=== PATIENT | male | born 1955 | race Caucasian/White ===

== ENCOUNTER 2017-05-03 16:11 | Emergency (ER) | payer MEDICARE, OTHER ==
[~2017-05-03] VITALS: Ht 188 cm; Wt 123.0 kg
[~2017-05-03 16:11] MED LIST: ASPI-621 PO; FLUT1DIS5 IH; GLIP10TA13 PO; INSU300I SQ; LISI-170 PO; SIMV20TA3 PO; SITA1TAB5 PO; ZOLP10TA PO
[2017-05-03 17:01] LABS: BLOOD UREA NITROGEN 20 mg/dL (7-18)
[2017-05-03 18:00] VITALS: BP 131/54
[2017-05-03 18:15] LABS: HEMATOCRIT 43.3 % (39.2-51.8); HEMOGLOBIN 14.9 g/dL (13.7-18.0); WHITE BLOOD COUNT 9.2 x10^3/uL (3.4-10)
== END 2017-05-03 18:57 | disposition home or self-care (01) ==
LOC: ED 16:41
DX: R55 Syncope and collapse (principal); R32 Unspecified urinary incontinence; E11.9 Type 2 diabetes mellitus without complications; J44.9 Chronic obstructive pulmonary disease, unspecified; Z86.73 Personal history of transient ischemic attack (TIA), and cerebral infarction without residual deficits; Z99.81 Dependence on supplemental oxygen
CPT/HCPCS: 36415; 70450; 71010; 80048; 81003; 82040; 85025; 93005; 99285

== ENCOUNTER → 2017-08-25 | Outpatient (CLI) | payer OTHER, MEDICARE ==
[~2017-08-25] MED LIST changes: +GADOBUTROL 10 MMOL/10 ML PFS ONE
== END ==
LOC: CFH 11:54
PROVIDERS: ATTEND Genetic Counselor, MS
DX: R55 Syncope and collapse (principal); Z86.73 Personal history of transient ischemic attack (TIA), and cerebral infarction without residual deficits
CPT/HCPCS: 70553; 82565; A9585

== ENCOUNTER → 2018-04-26 | Outpatient (CLI) | payer MEDICARE ==
[~2018-04-26] MED LIST changes: -GADOBUTROL 10 MMOL/10 ML PFS ONE
== END | disposition home or self-care (01) ==
LOC: CFH 07:55
PROVIDERS: ATTEND Internal Medicine Critical Care Medicine
DX: R06.02 Shortness of breath (principal)
CPT/HCPCS: 71250

== ENCOUNTER 2020-01-27 02:27 | Observation (INO) | payer MEDICARE ==
[~2020-01-27] VITALS: Ht 188 cm; Wt 123.0 kg
[~2020-01-27 02:27] MED LIST changes: -ASPI-621 PO; +ASPI81TA45 PO; +SIMV20TA19 PO; -SIMV20TA3 PO
[2020-01-27] MEDS ORDERED: SODIUM CHLORIDE 0.9% 1,000ML IVBOLUS ONE ×2 (03:00→04:30)
--- NOTE | 2020-01-27 03:07 | NUR ---
bib remsa, pt with n/v/d and syncopal episodes. pt usually wears 5 L O2 NC at all times. pt was in the bathroom, not wearing O2 when he passed out. pt arrives with 15L nonrebreather at 92%. pt with increased work of breathing and syncopal episode when sitting on cammode in ED treatment room. pt assisted by 4 RNs back to bed without falling. pt on guney, instructed not to get out of bed. at bedside. call light within reach. bed rails up x2. pt refusing zofran, continuing to vomit. attached to all monitors.
[2020-01-27] MEDS ORDERED: ONDANSETRON 2MG/ML, 2ML IVPush ONE (03:30)
[2020-01-27 03:38] LABS: BASOPHILS # (AUTO) 0.02 x10^3/uL (0-0.1); BASOPHILS % (AUTO) 0 % (0-1); EOSINOPHILS # (AUTO) 0.14 x10^3/uL (0-0.4); EOSINOPHILS % (AUTO) 1 % (1-7); LYMPHOCYTES # (AUTO) 2.24 x10^3/uL (1-3.4); LYMPHOCYTES % (AUTO) 16 % (22-44); MD NO; MEAN CORPUSCULAR HEMOGLOBIN 30.7 pg (27.5-34.5); MEAN CORPUSCULAR HGB CONC 33.1 g/dL (33.2-36.2); MEAN CORPUSCULAR VOLUME 92.7 fL (81-97); MEAN PLATELET VOLUME 8.9 fL (7.4-10.4); MONOCYTES # (AUTO) 0.28 x10^3/uL (0.2-0.8); MONOCYTES % (AUTO) 2 % (2-9); NEUTROPHILS # (AUTO) 11.23 x10^3/uL (1.8-6.8); NEUTROPHILS % (AUTO) 81 % (42-75); PLATELET COUNT 270 x10^3/uL (130-400); RED BLOOD COUNT 5.48 x10^6/uL (4.38-5.82); RED CELL DISTRIBUTION WIDTH 14.3 % (9.4-14.8)
[2020-01-27 03:50] LABS: ALANINE AMINOTRANSFERASE 26 U/L (12-78); ALBUMIN 3.1 g/dL (3.4-5.0); ANION GAP 12 mmol/L (5-15); CHLORIDE 112 mmol/L (98-107)
[2020-01-27 03:54] LABS: ALKALINE PHOSPHATASE 61 U/L (45-117); BILIRUBIN,TOTAL 0.6 mg/dL (0.2-1.0); TOTAL PROTEIN 7.2 g/dL (6.4-8.2); TROPONIN I < 0.015 ng/mL (0.000-0.045)
[2020-01-27] MEDS ORDERED: methylPREDNISolone SOD SUCC 125 MG/2 ML ONE (04:25)
[2020-01-27] MEDS ORDERED: DIPHENHYDRAMINE 50 MG/ML, 1ML ONE ×2 (04:25→11:05)
[2020-01-27] MEDS ORDERED: EPINEPHRINE 1 MG/ML, 1ML ONE (04:25)
[2020-01-27] MEDS ORDERED: methylPREDNISolone SOD SUCC 125 MG/2 ML IVPush ONE (04:30)
[2020-01-27] MEDS ORDERED: EPINEPHRINE 1 MG/ML, 1ML SQ ONE (04:30)
[2020-01-27] MEDS ORDERED: DIPHENHYDRAMINE 50 MG/ML, 1ML IVPush ONE (04:30)
[2020-01-27] MEDS ORDERED: SODIUM CHLORIDE 0.9% 1,000 ML IV SCH (04:49)
[2020-01-27] MEDS ORDERED: BISACODYL 10 MG SUPP PR PRN (05:00)
[2020-01-27] MEDS ORDERED: ACETAMINOPHEN 325 MG TABLET PO PRN (05:00)
[2020-01-27] MEDS ORDERED: DOCUSATE 100 MG CAPSULE PO PRN (05:00)
[2020-01-27] MEDS ORDERED: ONDANSETRON 2MG/ML, 2ML IVPush PRN (05:00)
[2020-01-27] MEDS ORDERED: POLYETHYLENE GLYCOL 17 GM PACKET PO PRN (05:00)
[2020-01-27] MEDS ORDERED: MELATONIN 5 MG TABLET PO PRN (05:00)
[2020-01-27] MEDS ORDERED: hydrALAzine 20 MG/ML, 1ML IVPush PRN (05:00)
--- NOTE | 2020-01-27 05:15 | NUR ---
pt with worsening rash all over his body since arrival. ER MD mccain notified and pt medicated for allergic reaction.
[2020-01-27 05:25] LABS: OCCULT BLOOD POSITIVE (NEGATIVE)
[2020-01-27] MEDS ORDERED: DIPHENHYDRAMINE 50 MG/ML, 1ML IVPush PRN (05:30)
[2020-01-27 05:41] LABS: CLOSTRIDIUM DIFFICILE ANTIGEN NEGATIVE; CLOSTRIDIUM DIFFICILE TOXIN NEGATIVE (Negative)
[2020-01-27 06:15] LABS: STOOL FOR LEUKOCYTES RARE (0-1/HPF) (NEGATIVE)
[2020-01-27] MEDS: methylPREDNISolone SOD SUCC 40 MG/ML IVPush SCH ×2 (07:07→11:17)
[2020-01-27] MEDS: DIPHENHYDRAMINE 50 MG/ML, 1ML IVPush SCH ×2 (07:08→11:17)
--- NOTE | 2020-01-27 07:09 | NUR ---
ASSUMED CARE OF PT AFTER RECEIVING REPORT FROM KAN LEDESMA. PT NOTED TO HAVE ALL OVER BODY ERYTHEMA. BREATHING EVEN AND UNLABORED, SPEAKING FULL SENTENCES. NOTED TO BE TACHICARDIC ON MONITOR
[2020-01-27] MEDS ORDERED: ENOXAPARIN 40 MG/0.4 ML ONE (07:26)
[2020-01-27] MEDS: ENOXAPARIN 40 MG/0.4 ML SQ SCH ×2 (07:30→07:38)
--- NOTE | 2020-01-27 08:56 | NUR ---
PROVIDED SALTINE CRACKERS AND WATER. AWAITING EVAL BY DR DIGGS TO DETERMINE IF PT CAN BE DOWNGRADED FROM CCU ADMISSION. PT REMAINS IN NO DISTRESS, ERYTHEMA LESSENED SINCE THIS RN'S ARRIVAL. BREATHING EVEN AND UNLABORED, REMAINS TACHYCARDIC AND TACHPNIC. SPEAKING IN FULL SENTENCES.
[2020-01-27] MEDS ORDERED: FAMOTIDINE 20 MG TABLET ONE (09:00)
[2020-01-27] MEDS ORDERED: methylPREDNISolone SOD SUCC 40 MG/ML IVPush SCH (09:00)
[2020-01-27] MEDS ORDERED: FAMOTIDINE 20 MG TABLET PO SCH (09:00)
[2020-01-27] MEDS ORDERED: methylPREDNISolone SOD SUCC 40 MG/ML ONE (11:04)
--- NOTE | 2020-01-27 11:15 | NUR ---
REPORT TO VINAY LEDESMA. PT TO BE TRANSPORTED TO THE FLOOR.
[2020-01-27 12:18] VITALS: BP 151/98
== END 2020-01-27 17:00 | disposition home or self-care (01) ==
LOC: ED 02:57 → INTOOBSV 04:49 → EDIP 04:49 → 4WST 11:29 → DCLOUNGE 16:50
PROVIDERS: ADMIT Internal Medicine; ATTEND Internal Medicine
DX: K52.9 Noninfective gastroenteritis and colitis, unspecified (principal); T78.09XA Anaphylactic reaction due to other food products, initial encounter; J96.21 Acute and chronic respiratory failure with hypoxia; R55 Syncope and collapse; E66.9 Obesity, unspecified; E11.9 Type 2 diabetes mellitus without complications; E78.5 Hyperlipidemia, unspecified; R00.0 Tachycardia, unspecified; J98.6 Disorders of diaphragm; N28.9 Disorder of kidney and ureter, unspecified; E87.2 Acidosis; N17.9 Acute kidney failure, unspecified; T50.915A Adverse effect of multiple unspecified drugs, medicaments and biological substances, initial encounter; Z88.0 Allergy status to penicillin; Z99.81 Dependence on supplemental oxygen; Z79.899 Other long term (current) drug therapy; Z79.4 Long term (current) use of insulin; Z79.82 Long term (current) use of aspirin
CPT/HCPCS: 71045; 80053; 82272; 82962; 83605; 83690; 83880; 84145; 84484; 85025; 87040; 87324; 89055; 93005; 96361; 96372; 96374; 96375; 96376; 99291; G0378; J0171; J1200; J2920; J2930; J7030; J1650

== ENCOUNTER → 2020-12-01 | Outpatient (CLI) | payer MEDICARE | END | disposition home or self-care (01) | LOC: CVU 07:50 | PROVIDERS: ATTEND Internal Medicine Cardiovascular Disease | DX: I08.3 Combined rheumatic disorders of mitral, aortic and tricuspid valves (principal); I11.9 Hypertensive heart disease without heart failure; R42 Dizziness and giddiness | CPT/HCPCS: 93306 ==